=== PATIENT | male | born 1980 | race African-American/Black ===

== ENCOUNTER 2022-07-15 12:05 | Emergency (ER) | payer OTHER ==
[2022-07-15 12:50] VITALS: BP 114/79; PULSE 87; RESP 18; TEMP 98.1; BMI 26.4
== END 2022-07-15 14:00 | disposition home or self-care (01) ==
LOC: JERFT 12:05
PROC: 0HQFXZZ Repair Right Hand Skin, External Approach (ICD-10-PCS; principal; 2022-07-15)
DX: S61.411A Laceration without foreign body of right hand, initial encounter (principal)
CPT/HCPCS: 99283-25